=== PATIENT | male | born 1960 | race Caucasian/White ===

== ENCOUNTER 2017-02-12 11:39 | Emergency (ER) | payer BC ==
[~2017-02-12] VITALS: Ht 177.8 cm; Wt 86.4 kg
[~2017-02-12 11:39] MED LIST: HCTZ 25MG TAB25 MG PO; PERCOCET 325 MG1 TA2 PO; PROMETHAZINE12.5 M5 PO
[2017-02-12 11:40] VITALS: TEMP 98.1
[2017-02-12] MEDS ORDERED: NORCO 325 MG-51 TAB PO (13:03)
[2017-02-12 14:04] VITALS: BP 152/95; PULSE 50
== END 2017-02-12 14:00 | disposition home or self-care (01) ==
LOC: COL.ER 11:39
DX: S52.502A Unspecified fracture of the lower end of left radius, initial encounter for closed fracture (principal); S39.92XA Unspecified injury of lower back, initial encounter; W17.89XA Other fall from one level to another, initial encounter; I10 Essential (primary) hypertension
CPT/HCPCS: J3010; J7030